=== PATIENT | female | born 2000 ===

== ENCOUNTER 2023-11-20 04:21 | Inpatient (IN) | payer SELFPAY ==
[2023-11-20] MEDS ORDERED: Misoprostol 200 MCG Tab PO PRN (04:23)
[2023-11-20] MEDS ORDERED: Water For Irrigation,Sterile 1,000 ML Container IRR PRN (04:23)
[2023-11-20] MEDS ORDERED: Tranexamic Acid IN NACL,ISO-OS 1,000 MG in Premix Bag 1 BAG IV PRN (04:23)
[2023-11-20] MEDS ORDERED: Sodium Chloride 0.9% 2.5 ML Syringe FLUSH PRN (04:23)
[2023-11-20] MEDS ORDERED: Lidocaine 1% 50 ML MDV INJECT PRN (04:23)
[2023-11-20] MEDS ORDERED: Carboprost Tromethamine 250 MCG/1 mL Vial IM PRN (04:23)
[2023-11-20] MEDS ORDERED: Methylergonovine 0.2 MG/1 ML Amp IM PRN (04:23)
[2023-11-20] MEDS ORDERED: Butorphanol 2 MG/ML SDV IVPUSH PRN (04:23)
[2023-11-20] MEDS ORDERED: Sodium Chloride 0.9% 10 ML Syringe FLUSH PRN (04:23)
[2023-11-20] MEDS ORDERED: Sodium Chloride 0.9% 20 ML SDV IV PRN (04:23)
[2023-11-20] MEDS: Lactated Ringers 1,000 ML IV SCH (04:35)
[2023-11-20 04:45] LABS: HEMATOCRIT 39.6 % (37.0-47.0); MEAN CORPUSCULAR HEMOGLOBIN 30.9 pg (28.0-32.0); MEAN CORPUSCULAR HGB CONC 35.4 g/dL (32.0-36.0); MEAN CORPUSCULAR VOLUME 87.4 fL (83.0-99.0); MEAN PLATELET VOLUME 11.6 fL (9.4-12.3); PLATELET COUNT,PLT 316 K/uL (150-400); RED BLOOD CELL COUNT 4.53 M/uL (4.10-5.30); WHITE BLOOD CELL COUNT,WBC 13.69 K/uL (3.9-11.3)
[2023-11-20] MEDS: Ropivacaine HCl/PF 200 ML ONE (05:12)
[2023-11-20] MEDS ORDERED: ePHEDrine 50 MG/ML SDV IVPUSH PRN ×2 (05:20)
[2023-11-20] MEDS ORDERED: Phenylephrine HCl In 0.9% NaCl 1 MG/10 ML Syringe IVPUSH PRN (05:20)
[2023-11-20] MEDS ORDERED: Ropivacaine HCl/PF 400 MG in Premix Bag 1 BAG EPIDUR SCH (05:30)
[2023-11-20] MEDS: Bupivacaine 0.5% 10 ML SDV ONE (08:12)
[2023-11-20] MEDS: Phenylephrine HCl In 0.9% NaCl 1 MG/10 ML Syringe ONE (08:12)
[2023-11-20] MEDS: Oxytocin/0.9 % Sodium Chloride 30 UNIT/500 ML BAG IV SCH (11:18)
[2023-11-20] MEDS ORDERED: oxyCODONE 5 MG Tab PO PRN (11:53)
[2023-11-20] MEDS ORDERED: Docusate Sodium 100 MG Cap PO PRN (11:53)
[2023-11-20] MEDS: Ibuprofen 800 MG Tab PO PRN (12:48)
[2023-11-20] MEDS: Witch Hazel Medicated Pads 40/Jar TOP PRN (12:49)
[2023-11-20] MEDS: Lanolin 100% Cream 7 GM Tube TOP PRN (12:49)
[2023-11-20] MEDS: Benzocaine/Menthol 20%-0.5% Spray 78 GM Cannister TOP PRN (12:50)
[2023-11-20 13:31] LABS: PH,UMBILICAL ARTERIAL 7.143 (7.18-7.38)
[2023-11-20 13:33] LABS: PH,UMBILICAL VENOUS 7.281 (7.25-7.45)
[2023-11-20] MEDS: Acetaminophen 500 MG Tab PO PRN (14:20)
[2023-11-21 05:55] LABS: HEMATOCRIT 33.9 % (37.0-47.0); HEMOGLOBIN 11.6 g/dL (12.0-16.0)
[2023-11-21] MEDS: buPROPion 150 MG Tab.ER PO SCH (10:28)
== END 2023-11-21 15:15 | disposition home or self-care (01) | DRG 807 ==
LOC: MW.OBCHECK 04:21 → MW.OB 04:21 → MW.OBCHECK 04:23 → MW.OB 04:23 → OBSVTOIN 11:38 → MW.OB 16:10
PROVIDERS: ADMIT Obstetrics & Gynecology; ATTEND Obstetrics & Gynecology
PROC: 10E0XZZ Delivery of Products of Conception, External Approach (ICD-10-PCS; principal; 2023-11-20)
PROC: 3E033VJ Introduction of Other Hormone into Peripheral Vein, Percutaneous Approach (ICD-10-PCS; 2023-11-20)
PROC: 3E0R3BZ Introduction of Anesthetic Agent into Spinal Canal, Percutaneous Approach (ICD-10-PCS; 2023-11-20)
PROC: 00HU33Z Insertion of Infusion Device into Spinal Canal, Percutaneous Approach (ICD-10-PCS; 2023-11-20)
DX: O99.345 Other mental disorders complicating the puerperium (principal); Z37.0 Single live birth; Z3A.39 39 weeks gestation of pregnancy; F53.0 Postpartum depression
CPT/HCPCS: 36415; 51702; 59025; 59409; 82803; 85014; 85018; 85027; 86592; 86850; 86900; 86901; A9270-GY; J0665; J2371; J2590; J2795; J7120